=== PATIENT | female | born 1950 | race Caucasian/White ===

== ENCOUNTER 2019-07-15 09:54 | Day surgery (SDC) | payer MEDICARE ==
[~2019-07-15] VITALS: Ht 157.5 cm; Wt 46.8 kg
[2019-07-15] VITALS (7 sets, daily range): BP systolic 88–123; BP diastolic 50–74
[~2019-07-15 09:54] MED LIST: ACET-1059 PO; ALEN70TA60 PO; CYCL1DRO EACHEYE; ESTR42.510 VG; VALA500T PO; VANCOMYCIN INJ 1000 MG in NORMAL SALINE 250ml IV.SOLN IV ONE; cefazolin/dext.iso 2gm/100ml 100 ML IV ONE; famotidine 20mg tablet PO ONE; ringers solution, lacted 1,000 ML IV SCH
[2019-07-15] MEDS ORDERED: ringers solution, lacted 1,000 ML IV SCH ×2 (10:24→14:34)
[2019-07-15] MEDS ORDERED: ondansetron/PF 4mg/2ml inj IV PRN ×2 (10:25→14:35)
[2019-07-15] MEDS ORDERED: morphine 4 MG/ML inj SYRINge IV PRN ×2 (10:25→14:35)
[2019-07-15] MEDS ORDERED: fentaNYL/PF 50MCG/1 ML 2ML syringe IV PRN ×2 (10:25)
[2019-07-15] MEDS ORDERED: labetalol 20mg/4ml (5mg/ml) syringe IV PRN (10:25)
[2019-07-15] MEDS ORDERED: hydrALAZINE 20mg/ml inj. IV PRN (10:25)
[2019-07-15] MEDS ORDERED: morphine 2 MG/ML inj. syringe IV PRN ×2 (10:25→14:35)
[2019-07-15 11:21] LABS: BASOPHILS % (AUTO) 0.5 % (0-1); EOSINOPHILS # (AUTO) 0.1 X10'3 (0-0.9); EOSINOPHILS % (AUTO) 2.3 % (0-6); LYMPHOCYTES # (AUTO) 0.9 X10'3 (1.1-4.8); LYMPHOCYTES % (AUTO) 15.7 % (21-51); MEAN CORPUSCULAR HEMOGLOBIN 34.5 PG (27.0-31.0); MEAN CORPUSCULAR HGB CONC 33.6 g/dL (33.0-36.5); MEAN CORPUSCULAR VOLUME 102.5 FL (78-98); MEAN PLATELET VOLUME 6.6 FL (7.4-10.4); MONOCYTES # (AUTO) 0.4 X10'3 (0-0.9); MONOCYTES % (AUTO) 7.8 % (2-12); NEUTROPHILS # (AUTO) 4.1 X10'3 (1.8-7.7); NEUTROPHILS % (AUTO) 73.7 % (42-75); PRE OP HEMATOCRIT 37.6 % (35.0-45.0); PRE OP HEMOGLOBIN 12.6 g/dL (12.0-16.0); PRE OP PLATELET COUNT 271 X10'3 (140-440); RED BLOOD COUNT 3.67 X10'6 (4.20-5.60); RED CELL DISTRIBUTION WIDTH 12.7 % (11.5-14.5)
[2019-07-15 11:35] LABS: ALBUMIN 4.1 G/DL (3.4-5.0); ALBUMIN/GLOBULIN RATIO 1.3 (1.1-1.5); ALKALINE PHOSPHATASE 55 IU/L (46-116); BLOOD UREA NITROGEN 12 MG/DL (7-18); BUN/CREATININE RATIO 14.5 (6.6-38.0); CHLORIDE 101 MMOL/L (99-107); CREATININE 0.83 MG/DL (0.40-0.90); PRE OP ALT 21 U/L (30-65); PRE OP ANION GAP 3 (8-16); PRE OP AST 27 U/L (10-37); PRE OP GLUCOSE 78 MG/DL (70-104); PRE OP SODIUM 137 MMOL/L (135-145); TOTAL CARBON DIOXIDE 32.6 MMOL/L (24-32); TOTAL PROTEIN 7.2 G/DL (6.4-8.2); eGFR 69 ML/MIN
[2019-07-15 11:36] LABS: PRE OP POTASSIUM 3.2 MMOL/L (3.4-5.1)
[2019-07-15] MEDS ORDERED: BUPIVAcaine/PF 2.5 mg/ml (0.25%) 30ml vial ONE (13:54)
[2019-07-15] MEDS ORDERED: fentaNYL/PF 50MCG/1 ML 2ML syringe ONE (14:00)
[2019-07-15] MEDS ORDERED: MIDAZolam 5mg/5ml vial ONE (14:00)
[2019-07-15] MEDS ORDERED: cloNIDine hcl/PF 100mcg/ml inj ONE (14:04)
[2019-07-15] MEDS ORDERED: meperidine/PF 25mg/ml syringe IV PRN ×3 (14:35)
[2019-07-15] MEDS ORDERED: proCHLORperazine 10 MG/2 ml inj IV PRN (14:35)
--- NOTE | 2019-07-15 15:09 | NUR ---
Received from OR via [facility] , accompanied by Anesthesiologist KYLE and report given by Anesthesiolgist. PATIENT WITH SPLINT TO LEFT UE THAT IS CDI. + CAP REFILL TO FINGERS. PWD. PATIENT WITH 20G PIV IN RIGHT UE RUNNING LR AT 100. Addendum: 07/15/19 at 1515 by Vaibhav Edmond RN, RN Amended: Links added.
--- NOTE | 2019-07-15 15:59 | NUR ---
All dc criteria for discharge home has been met. IV taken out without complications. All questions answered regarding dc paperwork. Vss. Significant other present to take patient home. Dressings cdi and vital signs stable. Taken out via wheelchair to personal vehicle where patient taken home by family/friend. Addendum: 07/15/19 at 1618 by Vaibhav Edmond RN, RN Amended: Links added.
== END 2019-07-15 15:59 | disposition home or self-care (01) ==
LOC: PAS 09:54
PROVIDERS: ATTEND Orthopaedic Surgery
DX: S52.551A Other extraarticular fracture of lower end of right radius, initial encounter for closed fracture (principal); G89.18 Other acute postprocedural pain; M85.80 Other specified disorders of bone density and structure, unspecified site; M16.11 Unilateral primary osteoarthritis, right hip; Z88.5 Allergy status to narcotic agent; Z98.890 Other specified postprocedural states; Z79.899 Other long term (current) drug therapy; Z72.89 Other problems related to lifestyle; W19.XXXA Unspecified fall, initial encounter; Y93.89 Activity, other specified; Y92.89 Other specified places as the place of occurrence of the external cause; Y99.8 Other external cause status
CPT/HCPCS: 25607; 36415; 64415; 80053; 85025; 93005; A6222; C1713; J0735; J2250; J3010; J3370; J3490; A4615; A4618; A6449; A7000; J7120

== ENCOUNTER 2023-12-17 08:41 | Outpatient (CLI) | payer MEDICARE ==
[~2023-12-17 08:41] MED LIST changes: -ACET-1059 PO; -VANCOMYCIN INJ 1000 MG in NORMAL SALINE 250ml IV.SOLN IV ONE; -cefazolin/dext.iso 2gm/100ml 100 ML IV ONE; -famotidine 20mg tablet PO ONE; -ringers solution, lacted 1,000 ML IV SCH
== END 2023-12-17 23:59 | disposition home or self-care (01) ==
LOC: VAS 08:41
PROVIDERS: ATTEND Family Medicine Sports Medicine
DX: S76.312A Strain of muscle, fascia and tendon of the posterior muscle group at thigh level, left thigh, initial encounter (principal); N28.1 Cyst of kidney, acquired; M54.50 Low back pain, unspecified; M77.9 Enthesopathy, unspecified; M54.16 Radiculopathy, lumbar region; M47.816 Spondylosis without myelopathy or radiculopathy, lumbar region; M43.3 Recurrent atlantoaxial dislocation with myelopathy; N13.30 Unspecified hydronephrosis; X58.XXXA Exposure to other specified factors, initial encounter; Y93.89 Activity, other specified; Y92.89 Other specified places as the place of occurrence of the external cause; Y99.8 Other external cause status
CPT/HCPCS: 76770

== ENCOUNTER 2024-05-11 14:08 | Outpatient (CLI) | payer MEDICARE | END 2024-05-11 23:59 | disposition home or self-care (01) | LOC: RAD 14:08 | PROVIDERS: ATTEND Family Medicine Sports Medicine | DX: N28.1 Cyst of kidney, acquired (principal) | CPT/HCPCS: 76770 ==